=== PATIENT | male | born 1945 | race Caucasian/White ===

== ENCOUNTER → 2017-04-03 | Day surgery (SDC) | payer MEDICARE ==
[~2017-04-03] MED LIST: BELLADONNA ALKALOIDS/OPIUM 60 MG SUPP RECTAL ONE; GENTAMICIN SULFATE 80 MG/2 ML VIAL ONE; LACTATED RINGER'S 1000 ML INJ 1,000 ML ONE; MIDAZOLAM HCL 2 MG/2 ML VIAL ONE; NS 100 ML (PAB BAG) 100 ML IV ONE; ONDANSETRON HCL 4 MG/2 ML VIAL IV PUSH ONE; PROPOFOL 200 MG/20 ML AMP IV ONE; ceFAZolin INJ 1,000 MG VIAL ONE
--- NOTE | 2017-04-03 13:14 | TN ---
cc: GIDEON ARTEAGA M.D. DATE OF SURGERY 04/03/2017 PREOPERATIVE DIAGNOSES 1. Urinary retention (ICD-10 code R33.8). 2. Benign prostatic hyperplasia (ICD-10 code N40.1). POSTOPERATIVE DIAGNOSES 1. Urinary retention (ICD-10 code R33.8). 2. Benign prostatic hyperplasia (ICD-10 code N40.1). PROCEDURE Transurethral resection of the prostate (TURP) (CPT code 29035). INDICATIONS Mr. Garcia is a 72-year-old gentleman who has failed maximum pharmacologic intervention and multiple trials of voiding for urinary retention and presents now for definitive treatment. FINDINGS Normal anterior urethra. The posterior urethra shows bilobular hyperplasia with a moderate to severe obstructing prostate. The ureteral orifice is of normal size, shape and position, effluxing clear urine. There is some mild trabeculation of the bladder; no diverticula, cellules, calcifications, tumors or suspicious mucosa. PROCEDURE IN DETAIL The procedure as well as the risks and benefits were explained to the patient and informed consent was obtained. The patient was taken to the major operative theater where he was placed in the supine position. The patient was identified as well as the operative site. A universal time-out was performed in standard fashion. At this time a 22.5 Ethiopian cystoscope with a 30-degree lens was inserted into the urethra and bladder with the above findings. At this time a decision was made to perform transurethral resection of the prostate using the bipolar gyrus system and a right-angle bladder loop. At this time using a 27-Ethiopian Schaefer resectoscope with the right angle loop which was placed under direct vision into the urethra and bladder, transurethral resection of the prostate was performed in the standard fashion beginning at the bladder neck, circumferentially and then working distally. Care was taken not to resect distal to the proximal verumontanum. After an adequate channel was produced, hemostasis was achieved using the coagulation mode of the electrocautery. The prostate chips were evacuated using an [employer] evacuator. After confirming hemostasis and removal of the chips, the bladder was surveyed and care was taken to make sure there was no incidental damage to the ureteral orifices bilaterally nor the sphincter and at this time the resectoscope was removed. After filling the bladder, pressure was placed on the dome of the bladder. There was a excellent stream of clear urine. At this time a 20-Ethiopian three-way hematuria catheter was placed to straight drain with the irrigation port capped and a belladonna and opioid suppository was then placed and there was clear urine effluxing. It was placed to a bedside bag. After being placed in the supine position, the patient emerged from anesthetic without difficulty and was transferred to the recovery room in stable condition to be discharged home when criteria is met. There are no obvious complications. The prostate chips were sent for final pathological evaluation. MD MONSE Buitrago/JUAN M /12:55 PM /1:02 PM
== END | disposition home or self-care (01) ==
LOC: ESDC 07:47
PROVIDERS: ATTEND Urology
DX: N40.1 Benign prostatic hyperplasia with lower urinary tract symptoms (principal); R33.8 Other retention of urine
CPT/HCPCS: 00914; 52601; 88305; G0416; J0690; J1580; J2250; J2405; J3010; J7120